=== PATIENT | male | born 1985 | race Caucasian/White ===

== ENCOUNTER 2017-04-14 22:48 | Observation (INO) | payer BC, OTHER ==
[2017-04-14] MEDS ORDERED: NS 0.9% 1000 ML* 1,000 ML IV ONE (23:02)
[2017-04-14] MEDS ORDERED: Metoclopramide IV* 5 MG/ML 2 ML VIAL IV ONE (23:02)
[2017-04-14] MEDS ORDERED: HYDROmorphone INJ* 2 MG/ML CARPUJECT SYRINGE IV SLOW PU ONE (23:02)
[2017-04-14 23:34] LABS: Hematocrit 44 % (42-52); Hemoglobin 15.4 g/dl (14.0-18.0); Mean Corpuscular HGB Conc 36 g/dl (31-36); Mean Corpuscular Hemoglobin 30 pg (27-31); Mean Corpuscular Volume 86 fL (80-94); Mean Platelet Volume 7 um3 (7.4-10.4); Platelet Count 230 10^3/ul (150-450); Red Blood Count 5.07 10^6/ul (4.0-5.4); Red Cell Distribution Width 14 % (10.5-15); White Blood Count 11.6 10^3/ul (3.5-10.8)
[2017-04-14 23:36] LABS: ABS Basophils 0 10^3/ul (0-0.2); ABS Eosinophils 0.1 10^3/ul (0-0.6); ABS Lymphocytes 0.8 10^3/ul (1.0-4.8); ABS Monocytes 0.9 10^3/ul (0-0.8); ABS Neutrophils 9.9 10^3/ul (1.5-7.7); ABS Nucleated RBC 0 10^3/ul; Eosinophil % 0.6 % (0-6); Lymphocyte % 6.6 % (25-47); Nucleated Red Blood Cells % 0.3
[2017-04-14] MEDS ORDERED: HYDROmorphone INJ* 1 MG/ML CARPUJECT SYRINGE ONE (23:39)
[2017-04-14 23:48] LABS: EGFR Non-African American 70.6 (>60)
[2017-04-14] MEDS ORDERED: Iohexol 300* (CONTRAST) 10 ML SDV IV ONE (23:53)
[2017-04-15] MEDS ORDERED: Piperacillin/Tazobac ADVAN(*) 3.375 GM in NS 0.9% 100 ML* 100 ML IVPB ONE (00:52)
[2017-04-15 00:59] LABS: Urine Appearance Clear; Urine Blood Negative (Negative); Urine Color Yellow; Urine Ketones Trace (Negative); Urine Protein Negative (Negative); Urine Specific Gravity 1.045 (1.010-1.030); Urine Urobilinogen Negative (Negative)
--- NOTE | 2017-04-15 01:13 | ED ---
Triston Mercedes Julia, scribed for Miah Chambers MD on 04/14/17 at 2302 . Abdominal Pain/Male - HPI Summary HPI Summary: This patient is a 32 year old M presenting to [facility] with a chief complaint of worsening R sided abdominal pain since this morning that began as diffuse abdominal pain. Patient reports constant bilateral testicular pain. Patient denies vomiting, diarrhea, and hematuria. The patient rates the pain 9/10 in severity. Symptoms aggravated by movement. Patient took Tylenol around noon to treat symptoms. Patient reports he was diagnosed with constipation at 12:30 today and given a prescription for Miralax. - History of Current Complaint Chief Complaint: EDAbdPain Stated Complaint: ABD PAIN Time Seen by Provider: 04/14/17 22:57 Hx Obtained From: Patient Onset/Duration: Lasting Hours, Still Present, Worse Since - this morning Timing: Constant, Lasting Hours Severity Initially: Moderate Severity Currently: Severe Pain Intensity: 9 Pain Scale Used: 0-10 Numeric Location: Discrete At: RUQ, Discrete At: RLQ, Other - testicles Radiates: Yes Radiates to: Other - testicles Aggravating Factor(s): Movement Similar Episode/Dx As:: recent dx of constipation - Allergies/Home Medications Allergies/Adverse Reactions: Allergies Allergy/AdvReac Type Severity Reaction Status Date / Time No Known Allergies Allergy Verified 04/14/17 23:21 PMH/Surg Hx/FS Hx/Imm Hx Endocrine/Hematology History: Reports: Hx Thyroid Disease - hypothroidism Cardiovascular History: Reports: Hx Hypertension Infectious Disease History: No Infectious Disease History: Denies: Traveled Outside the [place] in Last 30 Days - Family History Known Family History: Positive: Other - CA in women Negative: Cardiac Disease - Social History Alcohol Use: Weekly Substance Use Type: Reports: None Smoking Status (MU): Never Smoked Tobacco Have You Smoked in the Last Year: No Review of Systems Positive: Abdominal Pain. Negative: Vomiting, Diarrhea Positive: pain - testicular. Negative: hematuria All Other Systems Reviewed And Are Negative: Yes Physical Exam - Summary Physical Exam Summary: VITAL SIGNS: Reviewed. GENERAL: Patient is a well-developed and nourished male who is lying comfortable in the stretcher. Patient is not in any acute respiratory distress. HEAD AND FACE: No signs of trauma. No ecchymosis, hematomas or skull depressions. No sinus tenderness. EYES: PERRLA, EOMI x 2, No injected conjunctiva, no nystagmus. EARS: Hearing grossly intact. Ear canals and tympanic membranes are within normal limits. MOUTH: Oropharynx within normal limits. NECK: Supple, trachea is midline, no adenopathy, no JVD, no carotid bruit, no c- spine tenderness, neck with full ROM. CHEST: Symmetric, no tenderness at palpation LUNGS: Clear to auscultation bilaterally. No wheezing or crackles. CVS: Regular rate and rhythm, S1 and S2 present, no murmurs or gallops appreciated. ABDOMEN: Soft, with tenderness worse to the R side than L. No signs of distention. No rebound no guarding, and no masses palpated. Bowel sounds are normal. EXTREMITIES: FROM in all major joints, no edema, no cyanosis or clubbing. NEURO: Alert and oriented x 3. No acute neurological deficits. Speech is normal and follows commands. SKIN: Dry and warm Triage Information Reviewed: Yes Vital Signs On Initial Exam: Initial Vitals Temp Pulse Resp BP Pulse Ox 99.8 F 99 20 174/84 99 04/14/17 22:49 04/14/17 22:49 04/14/17 22:49 04/14/17 22:49 04/14/17 22:49 Vital Signs Reviewed: Yes Diagnostics - Vital Signs Vital Signs Temp Pulse Resp BP Pulse Ox 04/14/17 22:49 99.8 F 99 20 174/84 99 - Laboratory Lab Results: Lab Results 04/14/17 04/14/17 04/14/17 Range/Units 23:19 23:19 23:19 WBC 11.6 H (3.5-10.8) 10^3/ul RBC 5.07 (4.0-5.4) 10^6/ul Hgb 15.4 (14.0-18.0) g/dl Hct 44 (42-52) % MCV 86 (80-94) fL MCH 30 (27-31) pg MCHC 36 (31-36) g/dl RDW 14 (10.5-15) % Plt Count 230 (150-450) 10^3/ul MPV 7 L (7.4-10.4) um3 Neut % (Auto) 84.5 H (38-83) % Lymph % (Auto) 6.6 L (25-47) % Forrest % (Auto) 8.1 (1-9) % Eos % (Auto) 0.6 (0-6) % Baso % (Auto) 0.2 (0-2) % Absolute Neuts (auto) 9.9 H (1.5-7.7) 10^3/ul Absolute Lymphs (auto) 0.8 L (1.0-4.8) 10^3/ul Absolute Monos (auto) 0.9 H (0-0.8) 10^3/ul Absolute Eos (auto) 0.1 (0-0.6) 10^3/ul Absolute Basos (auto) 0 (0-0.2) 10^3/ul Absolute Nucleated RBC 0 10^3/ul Nucleated RBC % 0.3 Sodium 136 (133-145) mmol/L Potassium 3.7 (3.5-5.0) mmol/L Chloride 102 (101-111) mmol/L Carbon Dioxide 26 (22-32) mmol/L Anion Gap 8 (2-11) mmol/L BUN 13 (6-24) mg/dL Creatinine 1.20 H (0.67-1.17) mg/dL Est GFR ( Amer) 90.8 (>60) Est GFR (Non-Af Amer) 70.6 (>60) BUN/Creatinine Ratio 10.8 (8-20) Glucose 117 H (70-100) mg/dL Lactic Acid 1.0 (0.5-2.0) mmol/L Calcium 9.7 (8.6-10.3) mg/dL Magnesium 2.1 (1.9-2.7) mg/dL Total Bilirubin 1.10 H (0.2-1.0) mg/dL AST 18 (13-39) U/L ALT 21 (7-52) U/L Alkaline Phosphatase 60 (34-104) U/L C-Reactive Protein 81.43 H (< 5.00) mg/L Total Protein 7.3 (6.4-8.9) g/dL Albumin 4.4 (3.2-5.2) g/dL Globulin 2.9 (2-4) g/dL Albumin/Globulin Ratio 1.5 (1-3) Amylase 30 (29-103) U/L Lipase 23 (11.0-82.0) U/L Urine Color Urine Appearance Urine pH (5-9) Ur Specific Waverly (1.010-1.030) Urine Protein (Negative) Urine Ketones (Negative) Urine Blood (Negative) Urine Nitrate (Negative) Urine Bilirubin (Negative) Urine Urobilinogen (Negative) Ur Leukocyte Esterase (Negative) Urine Glucose (Negative) 04/15/17 Range/Units 00:40 WBC (3.5-10.8) 10^3/ul RBC (4.0-5.4) 10^6/ul Hgb (14.0-18.0) g/dl Hct (42-52) % MCV (80-94) fL MCH (27-31) pg MCHC (31-36) g/dl RDW (10.5-15) % Plt Count (150-450) 10^3/ul MPV (7.4-10.4) um3 Neut % (Auto) (38-83) % Lymph % (Auto) (25-47) % Forrest % (Auto) (1-9) % Eos % (Auto) (0-6) % Baso % (Auto) (0-2) % Absolute Neuts (auto) (1.5-7.7) 10^3/ul Absolute Lymphs (auto) (1.0-4.8) 10^3/ul Absolute Monos (auto) (0-0.8) 10^3/ul Absolute Eos (auto) (0-0.6) 10^3/ul Absolute Basos (auto) (0-0.2) 10^3/ul Absolute Nucleated RBC 10^3/ul Nucleated RBC % Sodium (133-145) mmol/L Potassium (3.5-5.0) mmol/L Chloride (101-111) mmol/L Carbon Dioxide (22-32) mmol/L Anion Gap (2-11) mmol/L BUN (6-24) mg/dL Creatinine (0.67-1.17) mg/dL Est GFR ( Amer) (>60) Est GFR (Non-Af Amer) (>60) BUN/Creatinine Ratio (8-20) Glucose (70-100) mg/dL Lactic Acid (0.5-2.0) mmol/L Calcium (8.6-10.3) mg/dL Magnesium (1.9-2.7) mg/dL Total Bilirubin (0.2-1.0) mg/dL AST (13-39) U/L ALT (7-52) U/L Alkaline Phosphatase (34-104) U/L C-Reactive Protein (< 5.00) mg/L Total Protein (6.4-8.9) g/dL Albumin (3.2-5.2) g/dL Globulin (2-4) g/dL Albumin/Globulin Ratio (1-3) Amylase (29-103) U/L Lipase (11.0-82.0) U/L Urine Color Yellow Urine Appearance Clear Urine pH 6.0 (5-9) Ur Specific [place] 1.045 H (1.010-1.030) Urine Protein Negative (Negative) Urine Ketones Trace H (Negative) Urine Blood Negative (Negative) Urine Nitrate Negative (Negative) Urine Bilirubin Negative (Negative) Urine Urobilinogen Negative (Negative) Ur Leukocyte Esterase Negative (Negative) Urine Glucose Negative (Negative) Result Diagrams: 04/14/17 23:19 04/14/17 23:19 Lab Statement: Any lab studies that have been ordered have been reviewed, and results considered in the medical decision making process. - CT A/P CT Interpretation Completed By: Radiologist - Acute Appendicitis. ED Physician has reviewed this report. - Additional Comments Diagnostic Additional Comments: Gallbladder US reveals, as per radiologist, no acute findings. ED Physician has reviewed this report. Abdominal Pain Fem Course/Dx - Course Course Of Treatment: Patient presents with R sided abdominal pain and bilateral testicular pain since this morning. Gallbladder US is unremarkable. CT A/P reveals acute appendicitis. Patient is given Dilaudid, Reglan, and Penicillin. Dr. Ling will admit for surgery. - Diagnoses Provider Diagnoses: Acute appendicitis - Provider Notifications Discussed Care Of Patient With: Javier Ling - surgery Time Discussed With Above Provider: 00:55 Instructed by Provider To: Admit As Inpatient - for surgery Discharge - Discharge Plan Condition: Fair Disposition: ADMITTED TO [facility] Referrals: Non Staff,Doctor [Primary Care Provider] - The documentation as recorded by the Triston ballard Julia accurately reflects the service I personally performed and the decisions made by me, Miah Chambers MD.
[2017-04-15] MEDS ORDERED: HYDROmorphone INJ* 1 MG/ML CARPUJECT SYRINGE IV PRN (02:41)
[2017-04-15] MEDS ORDERED: Ondansetron INJ* 2 MG/ML VIAL IV PRN ×2 (02:41→12:10)
[2017-04-15] MEDS ORDERED: Acetaminophen TAB* 325 MG PO PRN (02:44)
[2017-04-15] MEDS: NS 0.9% 1000 ML* 1,000 ML IV SCH ×2 (03:11→10:09)
--- NOTE | 2017-04-15 06:59 | RAD ---
INDICATION: Abdominal pain. COMPARISON: Comparison is made with a prior CT of the abdomen and pelvis from June 20, 2011. TECHNIQUE: Multiple real-time images of the right upper quadrant were obtained. FINDINGS: The gallbladder appear normal. No gallbladder wall thickening or pericholecystic fluid is present. No intra or extrahepatic ductal distention is present. The common bile duct measured 0.4 cm in diameter. The liver is normal in size without significant focal abnormality. The pancreas is obscured by overlying bowel gas. The right kidney is normal in size without evidence for hydronephrosis. IMPRESSION: NEGATIVE EXAM.
--- NOTE | 2017-04-15 07:13 | RAD ---
INDICATION: Abdominal pain. COMPARISON: Comparison is made with a prior study from June 20, 2011. TECHNIQUE: A CT scan of the abdomen and pelvis was performed with intravenous and without oral contrast following intravenous injection of 150 ml of Omnipaque 300 nonionic contrast. Contiguous axial sections were obtained from the lung bases through the symphysis pubis. Images were reconstructed in the coronal and sagittal planes. FINDINGS: There is mild dependent bilateral lower lobe subsegmental atelectasis. No pleural effusion is present. The liver is within normal limits in size without significant focal abnormality. No calcified gallstones are seen. The spleen is mildly enlarged spanning 15.0 cm. The pancreas appears to be within normal limits. The kidneys and adrenal glands are normal in size. No hydronephrosis is seen. No significant focal renal abnormality is seen. The aorta is normal in caliber and demonstrates homogeneous contrast opacification. No significant enlarged retroperitoneal lymph nodes are seen. The stomach, small and large bowel appear nondistended. The appendix is distended and fluid-filled with a diameter of 1.3 cm. There is stranding in the adjacent mesenteric fat most consistent with acute appendicitis. No abscess is seen. No free intraperitoneal air or fluid is seen. No significant focal osseous abnormality is seen. IMPRESSION: 1. FINDINGS MOST CONSISTENT WITH ACUTE APPENDICITIS. 2. MILD SPLENOMEGALY.
[2017-04-15] MEDS ORDERED: D5W IVPB ONE ×4 (09:02)
[2017-04-15] MEDS ORDERED: CEFOXITIN IVPB ONE ×4 (09:02)
[2017-04-15] MEDS ORDERED: oxyCODONE/Acetamin 5/325 MG* TAB PO PRN ×2 (10:25→12:10)
[2017-04-15] MEDS ORDERED: Cisatracurium* 2 MG/ML MDV 5 ML ONE (10:28)
[2017-04-15] MEDS ORDERED: Ondansetron INJ* 2 MG/ML VIAL ONE (10:28)
[2017-04-15] MEDS ORDERED: KETAMINE HCL* 50 MG/ML 10 ML VIAL ONE (10:28)
[2017-04-15] MEDS ORDERED: Lidocaine 2% PF * 5 ML VIAL ONE (10:28)
[2017-04-15] MEDS ORDERED: Dexamethasone IV* 4 MG/ML 1 ML (4 MG) ONE (10:28)
[2017-04-15] MEDS ORDERED: Midazolam* 1 MG/ML 10 ML VIAL (10 MG) ONE (10:28)
[2017-04-15] MEDS ORDERED: Ketorolac INJ* 30 MG/ML 1 ML VIAL ONE (10:28)
[2017-04-15] MEDS ORDERED: fentaNYL* 50 MCG/ML 5 ML VIAL (250 MCG VIAL) ONE (10:28)
[2017-04-15] MEDS ORDERED: Propofol* 10 MG/ML 20 ML BTL IV PUSH ONE (10:28)
[2017-04-15] MEDS ORDERED: Bupivacaine 0.25% SDV* 30 ML ONE (10:51)
[2017-04-15] MEDS ORDERED: Naloxone* 0.4 MG/ML 1 ML VIAL IV PRN (12:10)
[2017-04-15] MEDS ORDERED: fentaNYL* 50 MCG/ML 2 ML VIAL (100 MCG VIAL) IV PRN (12:10)
[2017-04-15 13:02] VITALS: BP 129/86
--- NOTE | 2017-04-15 17:32 | HP ---
CC: Dr. Elder Rosas * HISTORY AND PHYSICAL: DATE OF ADMISSION: 04/15/17 CHIEF COMPLAINT: Abdominal pain. HISTORY OF PRESENT ILLNESS: The patient is a 32-year-old male, was awakened in the early hours yesterday morning with central abdominal pain all across the lower abdomen. He was somewhat anorexic. No nausea. No vomiting. No fever. No chills. He was seen at [facility] in [place]. They told him he was constipated and he was sent home. Later in the day, he was having anorexia and increasing pain, it was shifting to the right lower quadrant and he came to the emergency room at [facility]. He has no nausea, no vomiting, no diarrhea or constipation. No blood in stool or urine. No accident injury or trauma. PAST MEDICAL HISTORY: Benign. PAST SURGICAL HISTORY: No previous surgeries. No chronic medical illnesses. MEDICATIONS: He denies being on any medications (he was previously on amlodipine for hypertension, but states he no longer needs it). ALLERGIES: No known medical allergies. FAMILY HISTORY: Benign. His mother had her appendix out and tolerated it well. There are no bleeding tendencies or anesthesia reactions in the family. SOCIAL HISTORY: He is a nonsmoker, rare drinker. He does not use drugs or illicit substances. He works in construction. He is here with his girlfriend today. REVIEW OF SYSTEMS: Negative for any major issues. No chest pain, heart pain, angina, or other cardiac disease. No emphysema, bronchitis, or other lung disease. No hepatitis, jaundice, or other hepatobiliary issues. No diabetes, thyroid, or other endocrine. As above, he had hypertension in the past, was on amlodipine and then has since been off it and states his blood pressure runs a little on the high side, but he does not need treatment anymore. He has no history. No kidney stones or kidney infections. No GI history. No colitis, irritable bowel, Crohn's disease or like. No neuromuscular or psych issues. PHYSICAL EXAMINATION GENERAL: He is a well-developed, well-nourished, overweight male consistent with stated age. VITAL SIGNS: Show temperature 99.3, pulse is 95 and regular, respirations 18 and unlabored, O2 saturation 98%, blood pressure 133/68. He is 6 feet tall, 270 pounds with a BMI of 37. HEENT: Head and neck is unremarkable. NECK: Supple without any adenopathy. LUNGS: Clear bilaterally. HEART: Regular, somewhat distant. No abnormal sounds. ABDOMEN: Obese and soft and exquisitely tender in the right lower quadrant with focal rebound tenderness. No guarding. No masses. No obvious hernias. EXTREMITIES: Well perfused and without edema. SKIN: Warm and well perfused. He is not diaphoretic. He is not jaundiced. DIAGNOSTIC STUDIES/LAB DATA: Laboratory studies reveal white blood count just a trace elevated at 11.6. He has slight left shift. Normal hemoglobin and platelets. Electrolytes are normal. Creatinine is 1.2. C-reactive protein is elevated at 81. Liver functions are normal. Urinalysis is essentially normal. He had a gallbladder ultrasound, which is normal. He had a CT scan of the abdomen and pelvis, which is consistent with acute appendicitis with inflammatory changes surrounding a dilated appendix. No evidence of perforation. IMPRESSION: A 32-year-old morbidly obese male with evidence of acute appendicitis. I discussed this with him and his family and I recommend laparoscopic appendectomy. He understands the procedure, the rationale, the risks and the expected recovery. We have gone over all these issues. All their questions have been answered and they would like to proceed with laparoscopic appendectomy this morning and we will do so as the operating room permits. [id number]/[facility] #: [id number] JULIENNE
--- NOTE | 2017-04-16 10:20 | OP ---
CC: Dr. Elder Rosas * DATE OF OPERATION: 04/15/17 - ROOM #331 DATE OF : 87 SURGEON: Javier Ling MD. ENERGY DIRECTOR: None. ANESTHESIOLOGIST: Dr. Dailey. ANESTHESIA: General anesthetic, local infiltration by the surgeon. PRE-OP DIAGNOSIS: Appendicitis. POST-OP DIAGNOSIS: Appendicitis. OPERATIVE PROCEDURE: Laparoscopic appendectomy. DESCRIPTION OF PROCEDURE: The patient was supine on the operative table. After adequate anesthetic, compression stockings, Beau Hugger warmer, and intravenous antibiotics, the abdomen clipped and prepped with antiseptic and draped in a sterile fashion. Local infiltrative anesthesia was then carried out all sites. Right upper quadrant 5 mm incision was created and Visiport cannula was placed under direct vision. Under direct vision then a 12 mm left upper quadrant and 5 mm supraumbilical were placed also under direct vision. The appendix was suppurative, but without any evidence of perforation or abscess. It was mobilized in the usual fashion. The appendix was divided using an Endo CLIFF wu stapler; the mesoappendix with a theodore load stapler. The appendix was placed in a retrieval bag and brought out through the left upper quadrant site without difficulty. There was no spillage. The appendix was sent in formalin for pathologic evaluation. Hemostasis was excellent. The staple lines were in good condition. The cannulae were removed. Pneumoperitoneum was allowed to escape. The skin was closed with 5-0 Vicryl in all cases, followed by Steri- Strips. He tolerated the procedure well was awakened and brought to recovery in good condition. No complications. No drains. Pathologic specimen was appendix. Sponge and instrument counts were correct. Estimated blood loss was 10 mL. [id number]/[facility] #: [id number] [facility]
== END 2017-04-15 13:15 | disposition home or self-care (01) ==
LOC: ED 22:48 → SSU 04-15 01:00
PROVIDERS: ADMIT Surgery; ATTEND Surgery
PROC: 0DTJ4ZZ Resection of Appendix, Percutaneous Endoscopic Approach (ICD-10-PCS; principal; 2017-04-15 10:39)
DX: K35.80 Unspecified acute appendicitis (principal); R10.9 Unspecified abdominal pain; Z86.79 Personal history of other diseases of the circulatory system; R16.1 Splenomegaly, not elsewhere classified
CPT/HCPCS: 36415; 74177; 76705; 80053; 81003; 82150; 83605; 83690; 83735; 85025; 86140; 87040; 96374; 96375; 99284; G0378; J0694; J1100; J1170; J1885; J2250; J2405; J2543; J2704; J2765; J3010; Q9967

== ENCOUNTER 2018-02-27 12:35 | Emergency (ER) | payer BC ==
[2018-02-27] MEDS ORDERED: NS 0.9% 1000 ML* 2,000 ML IV ONE (12:53)
[2018-02-27] MEDS ORDERED: Metoclopramide IV* 5 MG/ML 2 ML VIAL IV ONE (12:55)
[2018-02-27 13:17] LABS: ABS Basophils 0 10^3/ul (0-0.2); ABS Eosinophils 0.1 10^3/ul (0-0.6); ABS Lymphocytes 0.4 10^3/ul (1.0-4.8); ABS Monocytes 0.5 10^3/ul (0-0.8); ABS Neutrophils 9.2 10^3/ul (1.5-7.7); ABS Nucleated RBC 0 10^3/ul; Eosinophil % 1.2 %; Hematocrit 52 % (42-52); Hemoglobin 18.1 g/dl (14.0-18.0); Lymphocyte % 4.1 %; Mean Corpuscular HGB Conc 34 g/dl (31-36); Mean Corpuscular Hemoglobin 30 pg (27-31); Mean Corpuscular Volume 86 fL (80-94); Mean Platelet Volume 7.4 fL (7.4-10.4); Nucleated Red Blood Cells % 0.3; Platelet Count 268 10^3/ul (150-450); Red Blood Count 6.11 10^6/ul (4.00-5.40); Red Cell Distribution Width 13 % (10.5-15); White Blood Count 10.2 10^3/ul (3.5-10.8)
--- NOTE | 2018-02-27 13:21 | ED ---
GI/ HPI - HPI Summary HPI Summary: This pt is a 32 y/o male presenting to [facility] c/o vomiting and diarrhea since 03: 30 this morning. Pt notes he has had more than 10 episodes of diarrhea and approximately 7-8 episodes of emesis since then. Additionally reports abd pain, rating it 2 or 3 out of 10 in severity. He saw his PCP today and was sent to the ED. Denies fever, chills, chest pain, SOB. Pt states he has a 6 year old who has the same symptoms at home. Denies recent antibiotics. Pt reports a similar episode during and dx with norovirus. He states he had been feeling well since beginning of until this morning. - History of Current Complaint Chief Complaint: EDNauseaVomitDiarrh Time Seen by Provider: 02/27/18 12:46 Stated Complaint: DIARRHEA/VOMITING Hx Obtained From: Patient Onset/Duration: Started Hours Ago, Still Present Timing: Lasting Hours Current Severity: Mild Pain Intensity: 3 Location of Pain: Diffuse Associated Signs and Symptoms: Positive: Nausea, Vomiting, Diarrhea, Abdominal Pain. Negative: Fever, Chills, Cough, Chest Pain Aggravating Factor(s): Nothing Alleviating Factor(s): Nothing - Allergy/Home Medications Allergies/Adverse Reactions: Allergies Allergy/AdvReac Type Severity Reaction Status Date / Time No Known Allergies Allergy Verified 02/27/18 12:50 Home Medications: Home Medications Methylphenidate HCl [Methylphenidate HCl ER] 20 mg PO BID 02/27/18 [History Confirmed 02/27/18] PMH/Surg Hx/FS Hx/Imm Hx Endocrine/Hematology History: Reports: Hx Thyroid Disease - hypothroidism Cardiovascular History: Reports: Hx Hypertension Sensory History: Denies: Hx Contacts or Glasses, Hx Hearing Aid Opthamlomology History: Denies: Hx Contacts or Glasses - Immunization History Date of Tetanus Vaccine: 7 years Date of Influenza Vaccine: none Infectious Disease History: No Infectious Disease History: Denies: Traveled Outside the [place] in Last 30 Days - Family History Known Family History: Positive: Other - CA in women Negative: Cardiac Disease - Social History Alcohol Use: Rare Substance Use Type: Reports: None Smoking Status (MU): Never Smoked Tobacco Have You Smoked in the Last Year: No Review of Systems Negative: Fever, Chills Negative: Chest Pain Negative: Shortness Of Breath Positive: Abdominal Pain, Vomiting, Diarrhea, Nausea All Other Systems Reviewed And Are Negative: Yes Physical Exam - Summary Physical Exam Summary: GENERAL: Patient is a well developed and nourished male who is lying comfortable in the stretcher. Patient is not in any acute respiratory distress. HEAD AND FACE: Normocephalic EYES: PERRLA, EOMI x 2. EARS: Hearing grossly intact. MOUTH: Oropharynx within normal limits. NECK: Supple, trachea is midline, no adenopathy, no JVD, no carotid bruit. CHEST: Symmetric, no tenderness at palpation LUNGS: Clear to auscultation bilaterally. No wheezing or crackles. CVS: Regular rate and rhythm, S1 and S2 present, no murmurs or gallops appreciated. ABDOMEN: Soft, non-tender. Bowel sounds are normal. No abdominal abnormal pulsations. EXTREMITIES: Full ROM in all major joints, no edema, no cyanosis or clubbing. NEURO: Alert and oriented x 3. No acute neurological deficits. Speech is normal and follows commands. SKIN: Dry and warm Triage Information Reviewed: Yes Vital Signs On Initial Exam: Initial Vitals Temp Pulse Resp BP Pulse Ox 98.6 F 106 20 126/92 99 02/27/18 12:39 02/27/18 12:39 02/27/18 12:39 02/27/18 12:39 02/27/18 12:39 Vital Signs Reviewed: Yes Diagnostics - Vital Signs Vital Signs Temp Pulse Resp BP Pulse Ox 02/27/18 12:39 98.6 F 106 20 126/92 99 - Laboratory Result Diagrams: 02/27/18 13:07 02/27/18 13:07 Lab Statement: Any lab studies that have been ordered have been reviewed, and results considered in the medical decision making process. Re-Evaluation - Re-Evaluation First Eval Re-Evaluation Time: 15:27 Comment: I reviewed the discharge plan with the pt. He understands and agrees. GIGU Course/Dx - Course Assessment/Plan: Pt is a 32 y/o male who presents to the ED c/o vomiting and diarrhea since 03:30 this morning. Pt notes he has had more than 10 episodes of diarrhea and approximately 7-8 episodes of emesis since then. Workup is unremarkable. C. diff is negative. Pt will be discharged home with prescription for Zofran. I discussed results with patient and he reports feeling better. He is hemodynamically stable and safe for discharge. Strict return precautions given and he will otherwise follow up with his PCP. - Diagnoses Provider Diagnoses: Gastroenteritis Discharge - Sign-Out/Discharge Documenting (check all that apply): Patient Departure - Discharge home - Discharge Plan Condition: Stable Disposition: HOME Prescriptions: Ondansetron ODT TAB* [Zofran 4 MG Odt TAB*] 4 mg PO Q6H PRN #12 tab.odt PRN Reason: Nausea Patient Education Materials: Gastroenteritis (ED) Referrals: [facility] [Outside] Additional Instructions: Follow up with your primary care physician in 1-3 days. RETURN TO THE EMERGENCY DEPARTMENT FOR CHANGING OR WORSENING SYMPTOMS. - Billing Disposition and Condition Condition: STABLE Disposition: Home - Attestation Statements Document Initiated by Shin: Yes Documenting Scribe: Tracey Gaytan Provider For Whom Shin is Documenting (Include Credential): Odette Gonzalez MD Scribe Attestation: Tracey Mercedes scribed for Odette Gonzalez MD on 02/27/18 at 1820. Scribe Documentation Reviewed: Yes Provider Attestation: The documentation as recorded by the Tracey ballard accurately reflects the service I personally performed and the decisions made by , Odette Gonzalez MD Status of Scribe Document: Viewed
[2018-02-27 13:49] LABS: Albumin 4.8 g/dL (3.2-5.2); Albumin/Globulin Ratio 1.5 (1-3); BUN/Creatinine Ratio 13.6 (8-20); C Reactive Protein 6.74 mg/L (<8.01); Calcium 10.3 mg/dL (8.6-10.3); EGFR Non-African American 84.2 (>60); Globulin 3.2 g/dL (2-4); Potassium 4.6 mmol/L (3.5-5.0); Total Bilirubin 0.8 mg/dL (0.2-1.0)
[2018-02-27 15:58] VITALS: BP 125/78
== END 2018-02-27 16:01 | disposition home or self-care (01) ==
LOC: ED 12:35
DX: K52.9 Noninfective gastroenteritis and colitis, unspecified (principal)
CPT/HCPCS: 36415; 80053; 83605; 83630; 83690; 83735; 85025; 86140; 87040; 87045; 87046; 87493; 87899; 96361; 96374; 99282; J2765